=== PATIENT | male | born 1950 | race Caucasian/White ===

== ENCOUNTER 2017-07-22 07:22 | Outpatient (CLI) | payer BC ==
--- NOTE | 2017-07-22 09:13 | RAD ---
ESOPHOGRAM: Date: 07-22-17 History: Pharyngeal dysphagia. FINDINGS: There is mild decreased in primary esophageal peristalsis with mild tertiary contractions seen during the exam. 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 No focal narrowing is seen throughout the esophagus. A 12.5 mm barium tablet was administered during the exam which traverses the GE junction with only m inimal transient holdup. There is a small sliding type hiatal hernia demonstrated. No gastroesophagea l reflux was seen during the exam. No mucosal irregularity is seen in the esophagus. [employer] chest x-ray demonstrates that the lungs are clear and cardiac silhouette and pulmonary vasculat ure are within normal limits. IMPRESSION: 1. 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 2. Small sliding type hiatal hernia. 3. No evidence of gastroesophageal reflux. 4. Mild decrease in esophageal primary peristalsis with mild tertiary contractions. POS: EFRAIN
== END 2017-07-22 07:23 | disposition home or self-care (01) ==
LOC: RAD 07:22
PROVIDERS: ATTEND Family Medicine
DX: R13.13 Dysphagia, pharyngeal phase (principal); K22.5 Diverticulum of esophagus, acquired; K44.9 Diaphragmatic hernia without obstruction or gangrene
CPT/HCPCS: 74220

== ENCOUNTER 2018-12-04 13:47 | Outpatient (CLI) | payer BC ==
--- NOTE | 2018-12-04 16:07 | MRI ---
MRI lumbar spine noncontrast: HISTORY: Chronic back pain, radiating of left-sided COMPARISON: None FINDINGS: Appropriate T1 marrow signal intensity of the lumbar vertebra. Vertebral body height is maintained. N o fracture. No significant STIR hyperintensity to suggest vertebral body edema or ligamentous injury. Appropriate signal intensity of the paraspinal muscles T2 hyperintensity emanating from the left kidney, incompletely evaluated measuring 8.6 cm. Conus medullaris terminates at the inferior aspect of T12 T12-L1:No significant central canal stenosis or neural foraminal narrowing L1-L2:Adequate disc hydration. No significant central canal stenosis or neural foramina narrowing L2-L3:Interval disc desiccation without significant loss of disc space height. Minimal left and righ t paracentral disc bulges. No significant central canal stenosis or neural foraminal narrowing L3-L4:Minimal disc desiccation. Broad-based disc bulge and ligamentum flavum thickening do not cause any significant central canal stenosis. Mild bilateral foraminal narrowing L4-L5:Desiccation with moderate loss of disc space height. There is a central/left subarticular disc protrusion. Mild central canal stenosis. Disc material encroaches upon and partially obscure the traversing left L5 nerve root. Disc material encroaches upon but does not obscure the traversing righ t L5 nerve root. Mild to moderate bilateral foraminal narrowing. L5-S1:Severe loss of disc space height. Posterior disc protrusion. Disc material abuts the ventral th ecal sac without significant deformity stenosis. There is disc material in both subarticular zones, right greater than left. There is mass effect and partial obscuration the traversing right S1 nerve r oot. Disc material abuts but does not obscure the traversing left root. Mild to moderate right foraminal narrowing. Left neural foramen is patent IMPRESSION: Degenerative changes lumbar spine as described above. There is no evidence of high-grade central carmine l stenosis or high-grade neural foraminal narrowing. There is narrowing of the left subareolar zone at L4-L5 with partial obscuration traversing left L5 nerve root. There is narrowing of the right suba reolar zone at L5-S1. Disc material abuts and partially fused the traversing right S1 nerve Transcribed Date/Time: 12/04/2018 3:23 PM
== END 2018-12-04 13:48 | disposition home or self-care (01) ==
LOC: SCSMRI 13:47
PROVIDERS: ATTEND Family Medicine
DX: M47.26 Other spondylosis with radiculopathy, lumbar region (principal); M48.061 Spinal stenosis, lumbar region without neurogenic claudication; M48.07 Spinal stenosis, lumbosacral region
CPT/HCPCS: 72148